=== PATIENT | female | born 1945 | race Caucasian/White ===

== ENCOUNTER 2024-03-23 12:02 | Emergency (ER) | payer MEDICARE, BC ==
[~2024-03-23] VITALS: Ht 177.8 cm; Wt 46.7 kg
[2024-03-23 12:03] VITALS: O2SAT 98
== END 2024-03-23 14:01 | disposition home or self-care (01) ==
LOC: ER 12:02
DX: S06.0X0A Concussion without loss of consciousness, initial encounter (principal); W01.0XXA Fall on same level from slipping, tripping and stumbling without subsequent striking against object, initial encounter; Y93.89 Activity, other specified; Y92.89 Other specified places as the place of occurrence of the external cause; Y99.8 Other external cause status
CPT/HCPCS: 70450; A4606; A4663

== ENCOUNTER 2024-11-21 13:21 | Emergency (ER) | payer MEDICARE, BC ==
[~2024-11-21] VITALS: Ht 177.8 cm; Wt 46.7 kg
[2024-11-21] MEDS ORDERED: AMLO10TA59 PO (13:48)
[2024-11-21 14:18] LABS: BASOPHILS % (AUTO) 0.6 % (0.0-2.0); EOSINOPHILS # (AUTO) 0.1 K/uL (0.0-0.7); EOSINOPHILS % (AUTO) 0.8 % (0.0-7.0); HEMATOCRIT 34.9 % (31.2-41.9); HEMOGLOBIN 11.8 g/dL (10.9-14.3); LYMPHOCYTES # (AUTO) 1.9 K/uL (0.8-4.8); LYMPHOCYTES % (AUTO) 22.1 % (20.5-51.5); MEAN CORPUSCULAR HEMOGLOBIN 31.3 uug (24.7-32.8); MEAN CORPUSCULAR HGB CONC 34 g/dL (32.3-35.6); MEAN CORPUSCULAR VOLUME 92.5 fL (75.5-95.3); MONOCYTES # (AUTO) 0.8 K/uL (0.1-1.30); MONOCYTES % (AUTO) 9.5 % (0.0-11.0); NEUTROPHILS # (AUTO) 5.7 K/uL (1.8-8.9); PLATELET COUNT (AUTO) 503 K/uL (179-408); RED BLOOD CELL COUNT(AUTO) 3.77 MIL/uL (3.63-4.92); RED CELL DISTRIBUTION WIDTH 13.1 % (12.3-17.7); WHITE BLOOD COUNT (AUTO) 8.4 K/uL (3.8-11.8)
[2024-11-21 14:24] LABS: DIFFERENTIAL COMMENT 1
[2024-11-21 14:25] LABS: CALCIUM 9.2 mg/dL (8.5-10.1); CARBON DIOXIDE 37 mmol/L (21-32); CHLORIDE 99 mmol/L (98-107); CREATININE 0.9 mg/dL (0.6-1.3); GLUCOSE 106 mg/dL (74-106); POTASSIUM 3.5 mmol/L (3.5-5.1); SODIUM SERUM 142 mmol/L (136-145); UREA NITROGEN, BLOOD 16 mg/dL (7-18)
[2024-11-21] MEDS ORDERED: CYANOCOBALAMIN 1000 MCG/ML VIAL ONE (14:49)
[2024-11-21] MEDS: CYANOCOBALAMIN 1000 MCG/ML VIAL IM ONE (14:56)
[2024-11-21] MEDS ORDERED: POTASSIUM CHLORIDE 20 MEQ TAB.PRT.SR ONE (15:05)
[2024-11-21] MEDS: POTASSIUM CHLORIDE 20 MEQ TAB.PRT.SR PO ONE (15:06)
[2024-11-21 15:39] VITALS: BP 132/82; O2SAT 99
== END 2024-11-21 15:40 | disposition home or self-care (01) ==
LOC: ER 13:26
DX: R53.1 Weakness (principal); R14.0 Abdominal distension (gaseous); Z87.19 Personal history of other diseases of the digestive system
CPT/HCPCS: 99284; 80048; 83735; 85025; 36415; 93005; 96372; J3420; A4606; A4663